=== PATIENT | male | born 2005 | race Caucasian/White ===

== ENCOUNTER 2023-10-27 12:17 | Emergency (ER) | payer OTHER, SELFPAY ==
[2023-10-27] VITALS (11 sets, daily range): BP systolic 115–135; BP diastolic 67–74; PULSE 61–84; RESP 13–20; TEMP 36.7; O2SAT 94–100
--- NOTE | ~2023-10-27 | CT_ITS ---
EXAMINATION: CT chest abdomen pelvis w con DATE: 10/27/2023 15:08 INDICATION: Trauma. Pneumothorax. TECHNIQUE: Computed tomography (CT) of the chest, abdomen, and pelvis was performed with 100 mL Omnip aque-350 intravenous contrast. Automated exposure control and iterative reconstruction technique were employed. The dose-length product was 535.51 mGy-cm. COMPARISON: None FINDINGS: CHEST CT: Small left pneumothorax without evident mediastinal shift. Small focus of tree-in-bud opacity in the anterobasilar left lower lobe consistent with endobronchial spread of disease . A couple of the small centrilobular nodules are calcified consistent with old granulomatous disease. No other airspace opa cities, pulmonary edema, pleural effusion or right-sided pneumothorax. Heart size is normal. No peric ardial effusion. Thoracic aorta is normal in caliber with no acute traumatic aortic injury. There are few calcified left hilar and mediastinal lymph nodes consistent with old granulomatous disease. Auto Body Shop Manager tristen appearing mild likely physiologic anterior wedging at T11 and T12. No other osseous abnormality. Specifically no rib fractures identified. ABDOMEN/PELVIS CT: Liver, gallbladder, spleen, pancreas, bilateral adrenal glands and kidneys are normal. Bowels includi ng the appendix are normal. Bladder is normal. No free intraperitoneal gas or fluid. No pathologicall y enlarged abdominal or pelvic lymphadenopathy. Small bone islands at the bilateral femoral heads and right sacral ala. No acute osseous abnormality. IMPRESSION: 1. Small left pneumothorax without evident rib fractures. 2. Small focus of tree-in-bud opacity including a couple calcified nodules in the anterobasilar left lower lobe most likely sequela of chronic infection/granulomatous disease. 3. Unremarkable CT of the abdomen and pelvis with no acute intra-abdominal/pelvic process. Reviewed, dictated and finalized at location A. FITTER IMPRESSION: 1. Small left pneumothorax without evident rib fractures. 2. Small focus of tree-in-bud opacity including a couple calcified nodules in t he anterobasilar left lower lobe most likely sequela of chronic infection/granu lomatous disease. 3. Unremarkable CT of the abdomen and pelvis with no acute intra-abdominal/pelv ic process.
--- NOTE | ~2023-10-27 | XR_ITS ---
EXAMINATION: XR shoulder LT min 2V, XR clavicle LT DATE: 10/27/2023 13:47 INDICATION: Left shoulder and clavicle pain TECHNIQUE: 1. AP internally and externally rotated, AP oblique externally rotated and transscapular Y views of t he affected shoulder were obtained. 2. AP and angled AP views of the left clavicle were obtained. COMPARISON: None FINDINGS: Normal alignment. No fracture. Glenohumeral joint is normal. Acromioclavicular joint is normal. Soft tissues are unremarkable. Small left pneumothorax with up to 2.5 cm maximal separation of the pleural margins at the apex IMPRESSION: 1. Small left pneumothorax. No evident osseous abnormality. Dr. Jewell discussed these findings wit h Dr. Hale at 1:58 PM. Reviewed, dictated and finalized at location A. IPITATOR SUPERVISOR IMPRESSION: 1. Small left pneumothorax. No evident osseous abnormality. Dr. Fanta pena sed these findings with Dr. Hale at 1:58 PM.
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
[2023-10-27] MEDS: IBUPROFEN 400 MG TABLET 800 MG PO (13:36)
[2023-10-27 14:43] LABS: Basophils Percent Auto 0.6 % (0.2-1.2); Eosinophils Absolute Auto 0.1 K/mm3 (0-0.3); Hematocrit 41.8 % (42.0-52.0); Hemoglobin 14.3 g/dL (14.0-18.0); Immature Granulocyte Absolute 0.01 K/mm3 (0.00-0.031); Immature Granulocyte Percent A 0.1 % (0-0.5); Lymphocytes Absolute Auto 1.71 K/mm3 (0.9-3.2); Lymphocytes Percent Auto 24.2 % (18.3-44.2); Mean Corpuscular HGB Conc 34.2 g/dl (32-36); Mean Corpuscular Hemoglobin 32.6 pg (26-34); Mean Corpuscular Volume 95.2 fl (80-100); Monocytes Absolute Auto 0.7 K/mm3 (0.1-0.6); Monocytes Percent Auto 9.9 % (2.6-8.5); Neutrophils Absolute Auto 4.5 K/mm3 (1.3-6.7); Neutrophils Percent Auto 64.2 % (45.5-73.1); Platelet Count Result 206 k/mm3 (150-375); Red Blood Count 4.39 M/mm3 (4.6-6.20); Red Cell Distribution Width 12.3 % (11.5-14.5); White Blood Count 7.1 K/mm3 (4.5-10.0)
[2023-10-27 14:53] LABS: Alanine Aminotransferase 24 U/L (6-50); Albumin Level 4.3 g/dL (3.5-5.1); Alkaline Phosphatase 65 U/L (38-126); Anion Gap 4 mmol/L (8-16); Aspartate Amino Transferase 36 U/L (17-59); Bilirubin,Total 0.9 mg/dL (0.2-1.3); Blood Urea Nitrogen 16 mg/dL (9-20); Calcium 9.4 mg/dL (8.4-10.2); Carbon Dioxide 30 mmol/L (22-30); Chloride 103 mmol/L (98-107); Estimated CRCL calculation 129 ml/min; Estimated Glomerular Filt Rate > 60; Glucose 90 mg/dL (65-110); Potassium 4.2 mmol/L (3.4-5.0); Sodium 137 mmol/L (137-145)
[2023-10-27 14:56] LABS: Prothrombin Time 13.9 Seconds (11.1-14.7)
[2023-10-27 14:57] LABS: Partial Thromboplastin Time 29.3 SECONDS (22.3-36.8)
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
== END 2023-10-27 16:49 | disposition home or self-care (01) ==
PROVIDERS: Emergency Provider Student in an Organized Health Care Education/Training Program
DX: J93.83 Other pneumothorax (principal); S43.102A Unspecified dislocation of left acromioclavicular joint, initial encounter; R91.8 Other nonspecific abnormal finding of lung field; V86.56XA Driver of dirt bike or motor/cross bike injured in nontraffic accident, initial encounter
CPT/HCPCS: 36415; 71260; 73000; 73030; 74177; 80053; 85025; 85610; 85730; 99284; A9270; Q9967

== ENCOUNTER 2023-10-29 11:43 | Outpatient (CLI) | payer OTHER, SELFPAY ==
--- NOTE | ~2023-10-29 | XR_ITS ---
Clinical Indication: Pneumothorax PA and lateral views of the chest: Comparison: 08/13/2018 Findings: The lungs are clear, without evidence of focal consolidation or pleural effusion. Cardiome diastinal silhouette is within normal limits. Bones and soft tissues are unremarkable. Impression: Normal chest. Reviewed, dictated and finalized at [facility]. C PYTHON DEVELOPER Impression: Normal chest.
== END 2023-10-29 11:44 ==
PROVIDERS: PCP Surgery; Visit Provider Student in an Organized Health Care Education/Training Program
DX: J93.83 Other pneumothorax (principal)
CPT/HCPCS: 71046